=== PATIENT | female | born 1990 | race Caucasian/White ===

== ENCOUNTER 2017-10-16 09:50 | Emergency (ER) | payer SELFPAY ==
[2017-10-16] MEDS ORDERED: IPRATROPIUM/ALBUTEROL 0.5-2.5 MG/3 ML AMPUL NEB ONE (10:05)
[2017-10-16] MEDS ORDERED: NORMAL SALINE 1000 ML 1,000 ML IV ONE (10:07)
[2017-10-16] MEDS ORDERED: MAGNESIUM SULFATE/D5W 1 GM/100 ML RTUPB IV ONE (10:07)
--- NOTE | 2017-10-16 10:07 | ER Document Report ---
ED Medical Screen (RME) - General Chief Complaint: Asthma Exacerbation Stated Complaint: SHORTNESS OF BREATH Time Seen by Provider: 10/16/17 10:05 Mode of Arrival: Ambulatory Information source: Patient Notes: 27-year-old female history of asthma presents with complaints of shortness of breath wheezing of 2 day duration patient drove here from [place] 3 days ago does not have her inhaler. No previous history of PEs I have greeted and performed a rapid initial assessment of this patient. A comprehensive ED assessment and evaluation of the patient, analysis of test results and completion of the medical decision making process will be conducted by additional ED providers. PHYSICAL EXAMINATION: GENERAL: Well-appearing, well-nourished and in mild respiratory distress. HEAD: Atraumatic, normocephalic. EYES: Pupils equal round extraocular movements intact, conjunctiva are normal. ENT: Nares patent NECK: Normal range of motion LUNGS: Inspiratory expiratory wheezing all throughout Musculoskeletal: Normal range of motion NEUROLOGICAL: Normal speech, normal gait. PSYCH: Normal mood, normal affect. SKIN: Warm, Dry, normal turgor, no rashes or lesions noted. Physical Exam - Vital signs Vitals: Temp Pulse Resp BP Pulse Ox 98.7 F 120 H 32 H 148/91 H 91 L 10/16/17 09:56 10/16/17 09:56 10/16/17 09:56 10/16/17 09:56 10/16/17 09:56 Course - Vital Signs Vital signs: Temp Pulse Resp BP Pulse Ox 98.7 F 120 H 32 H 148/91 H 91 L 10/16/17 09:56 10/16/17 09:56 10/16/17 09:56 10/16/17 09:56 10/16/17 09:56
[2017-10-16 10:28] LABS: ABSOLUTE BASOPHILS # (AUTO) 0.1 10^3/uL (0.0-0.2); ABSOLUTE EOSINOPHILS # (AUTO) 0.9 10^3/uL (0.0-0.6); ABSOLUTE LYMPHOCYTES (AUTO) 2.6 10^3/uL (0.5-4.7); ABSOLUTE MONOCYTES (AUTO) 0.6 10^3/uL (0.1-1.4); ABSOLUTE NEUT (AUTO) 4.9 10^3/uL (1.7-8.2); BASOPHILS % (AUTO) 1.3 % (0-2); EOSINOPHILS % (AUTO) 9.8 % (0-6); HEMATOCRIT 43.3 % (36.0-47.0); HEMOGLOBIN 14.5 g/dL (12.0-15.5); LYMPHOCYTES % (AUTO) 28.5 % (13-45); MEAN CORPUSCULAR HEMOGLOBIN 28.9 pg (27.0-33.4); MEAN CORPUSCULAR HGB CONC 33.5 g/dL (32.0-36.0); MEAN CORPUSCULAR VOLUME 86 fl (80-97); PLATELET COUNT 302 10^3/uL (150-450); RED BLOOD COUNT 5.02 10^6/uL (3.72-5.28); RED CELL DISTRIBUTION WIDTH 14.3 % (11.5-14.0); SEGMENTED NEUTROPHILS % (AUTO) 53.4 % (42-78); TOTAL CELLS COUNTED % (AUTO) 100 %; WHITE BLOOD COUNT 9.2 10^3/uL (4.0-10.5)
[2017-10-16 10:43] LABS: ALANINE AMINOTRANSFERASE 25 U/L (9-52); ALBUMIN 3.7 g/dL (3.5-5.0); ALKALINE PHOSPHATASE 94 U/L (38-126); ANION GAP 8 (5-19); ASPARTATE AMINO TRANSFERASE 20 U/L (14-36); BILIRUBIN,DIRECT 0.3 mg/dL (0.0-0.4); BILIRUBIN,TOTAL 0.4 mg/dL (0.2-1.3); BLOOD UREA NITROGEN 11 mg/dL (7-20); CALCIUM 9.3 mg/dL (8.4-10.2); CARBON DIOXIDE 25 mmol/L (22-30); CHLORIDE 109 mmol/L (98-107); GLUCOSE 99 mg/dL (75-110); POTASSIUM 4.5 mmol/L (3.6-5.0); SODIUM 141.5 mmol/L (137-145); TOTAL PROTEIN 6.6 g/dL (6.3-8.2)
[2017-10-16 11:12] VITALS: BP 125/86
[2017-10-16] MEDS ORDERED: PREDNISONE 20 MG TABLET PO ONE (11:21)
[2017-10-16] MEDS ORDERED: ALBUTEROL SULFATE HFA (90 MCG/PUFF) 8 GM MDI (1 MDI/ER DISP) IH ONE (11:21)
--- NOTE | 2017-10-16 11:22 | ER Document Report ---
ED General - General Chief Complaint: Asthma Exacerbation Stated Complaint: SHORTNESS OF BREATH Time Seen by Provider: 10/16/17 10:05 Mode of Arrival: Ambulatory TRAVEL OUTSIDE OF THE [place] IN LAST 30 DAYS: No - HPI Patient complains to provider of: Asthma exacerbation Notes: Patient coming in for evaluation shortness of breath and asthma. Patient recently traveled from [place] to the local area and is currently heading back to [place] today. Patient still remain sedated for the recent antibiotics no recent steroids. Patient does not smoke. Patient states that she has a history of collapsed lung when she was younger therefore normally has a low oxygenation status around [id number]. Upon evaluation patient was slightly hypoxic to tachypneic and tachycardic. Diffuse audible wheezes are heard upon entering the room. Patient is speaking approximately 4-5 word sentences. No fevers no chills no chest pain no nausea no vomiting patient denies being - Related Data Allergies/Adverse Reactions: No Known Allergies Allergy (Unverified 10/16/17 11:12) Past Medical History - General Information source: Patient - Social History Smoking Status: Never Smoker Chew tobacco use (# tins/day): No Frequency of alcohol use: None Drug Abuse: None Family History: Reviewed & Not Pertinent Patient has suicidal ideation: No Patient has homicidal ideation: No Pulmonary Medical History: Reports: Hx Asthma Renal/ Medical History: Denies: Hx Peritoneal Dialysis Past Surgical History: Reports: Hx Cholecystectomy Review of Systems - Review of Systems Constitutional: No symptoms reported EENT: No symptoms reported Cardiovascular: No symptoms reported Respiratory: Short of breath, Wheezing Gastrointestinal: No symptoms reported Genitourinary: No symptoms reported Female Genitourinary: No symptoms reported Musculoskeletal: No symptoms reported Skin: No symptoms reported Hematologic/Lymphatic: No symptoms reported Neurological/Psychological: No symptoms reported -: Yes All other systems reviewed and negative Physical Exam - Vital signs Vitals: Temp Pulse Resp BP Pulse Ox 98.7 F 120 H 32 H 148/91 H 91 L 10/16/17 09:56 10/16/17 09:56 10/16/17 09:56 10/16/17 09:56 10/16/17 09:56 Interpretation: Tachycardic, Tachypneic - General General appearance: Appears well, Alert - HEENT Head: Normocephalic, Atraumatic Eyes: Normal Pupils: PERRL - Respiratory Respiratory status: No respiratory distress, Tachypnea Chest status: Nontender Breath sounds: Rhonchi, Wheezing Chest palpation: Normal - Cardiovascular Rhythm: Regular Heart sounds: Normal auscultation Murmur: No - Abdominal Inspection: Normal Distension: No distension Bowel sounds: Normal Tenderness: Nontender Organomegaly: No organomegaly - Back Back: Normal, Nontender - Extremities General upper extremity: Normal inspection, Nontender, Normal color, Normal ROM , Normal temperature General lower extremity: Normal inspection, Nontender, Normal color, Normal ROM , Normal temperature, Normal weight bearing. No: Marion's sign - Neurological Neuro grossly intact: Yes Cognition: Normal Orientation: AAOx4 Marah Coma Scale Eye Opening: Spontaneous Marah Coma Scale Verbal: Oriented [place] Coma Scale Motor: Obeys Commands Marah Coma Scale Total: 15 Speech: Normal Motor strength normal: LUE, RUE, LLE, RLE Sensory: Normal - Psychological Associated symptoms: Normal affect, Normal mood - Skin Skin Temperature: Warm Skin Moisture: Dry Skin Color: Normal Course - Re-evaluation Re-evalutation: 10/16/17 14:58 After medical therapy patient feeling much better oxygenation has improved patient is no longer requiring oxygen. Patient states she like to be discharged at this time patient has not received chest x-ray reevaluation reveals very scattered wheezes throughout the lung baca however patient is breathing better since the kidney have resolved. Patient will be given an inhaler here started on oral steroids. Otherwise patient will be discharged at her request no signs of any impending airway compromise - Vital Signs Vital signs: Temp Pulse Resp BP Pulse Ox 98.7 F 120 H 18 125/86 H 99 10/16/17 09:56 10/16/17 09:56 10/16/17 11:01 10/16/17 11:01 10/16/17 11:01 - Laboratory Result Diagrams: 10/16/17 10:10 10/16/17 10:10 Laboratory results interpreted by me: 10/16/17 10/16/17 10:10 10:10 RDW 14.3 H Eosinophils % 9.8 H Absolute Eosinophils 0.9 H Chloride 109 H Discharge - Discharge Clinical Impression: Asthma exacerbation Qualifiers: Asthma severity: mild Asthma persistence: unspecified Qualified Code(s): J45.901 - Unspecified asthma with (acute) exacerbation Condition: Good Disposition: HOME, SELF-CARE Instructions: Asthma (OM), Inhaled Bronchodilators (OM), Stop Smoking (OM) Additional Instructions: Your laboratory studies not reveal any significant pathology today. Your vital signs and work of breathing and lung sounds have improved with medications here. Please use inhaler that we gave you here in ER 2 puffs every 2-4 hours please take steroids as prescribed follow-up with your primary care physician return to ER symptoms worsen. Prescriptions: Albuterol Sulfate [Proair HFA Inhalation Aerosol 8.5 gm MDI] 2 puff IH Q4H PRN # 1 mdi PRN Reason: Prednisone [Deltasone] 60 mg PO DAILY #24 tablet Forms: Return to Work
== END 2017-10-16 11:33 | disposition home or self-care (01) ==
LOC: ER 09:50
DX: J45.901 Unspecified asthma with (acute) exacerbation (principal); Z90.49 Acquired absence of other specified parts of digestive tract
CPT/HCPCS: 94640; 99285; 96374; 36415; 84702; 83735; 85025; 80053; 85379; J3475; J7512; J7030; J3490; J7620